=== PATIENT | female | born 1990 | race American Indian/Alaskan Native ===

== ENCOUNTER 2017-10-01 21:21 | Emergency (ER) | payer BC ==
[2017-10-01 22:01] VITALS: BP 121/75
[2017-10-02] MEDS ORDERED: MOTRIN PO ONE (01:39)
[2017-10-02] MEDS ORDERED: NORCO 5/325 PO ONE (01:39)
--- NOTE | 2017-10-02 01:44 | Emergency Department Report ---
HPI - General Chief Complaint: Extremity Problem,Nontraumatic Time Seen by Provider: 10/02/17 00:55 - HPI HPI: The patient's is a 27 yo female presents for evaluation of pain to her thumb. Patient reports left thumb and wrist pain for the past 4 days, 10/10 in severity , sharp in quality, exacerbated with use of the left thumb or movement of the wrist. The patient denies trauma to the thumb or wrist, fever, chills, night sweats, paresthesias, motor deficit. ED Past Medical Hx - Past Medical History Previous Medical History?: No - Surgical History Past Surgical History?: No - Social History Smoking Status: Never Smoker - Medications Home Medications: Home Medications Medication Instructions Recorded Confirmed Last Taken Type Acetaminophen/Codeine [Tylenol #3] 1 tab PO Q6H PRN #10 tab 10/02/17 Unknown Rx Ibuprofen [Motrin] 600 mg PO Q8H PRN #30 tablet 10/02/17 Unknown Rx ED Review of Systems ROS: Stated complaint: LT WRIST PAIN Other details as noted in HPI Constitutional: denies: fever ENT: denies: throat or neck pain Respiratory: denies: cough, shortness of breath Cardiovascular: denies: chest pain Endocrine: denies unexplained weight loss or gain Gastrointestinal: denies: abdominal pain, nausea Genitourinary: denies: dysuria Musculoskeletal: reports left thumb pain denies: leg swelling Skin: denies: rash Neurological: denies: headache Hematological/Lymphatic: denies: easy bleeding or easy bruising Psych: denies sadness or hopelessness Physical Exam - Physical Exam Vital Signs: Vital Signs 10/01/17 10/01/17 21:55 22:38 Temperature 98.4 F 98.4 F Pulse Rate 87 80 Respiratory 19 18 Rate Blood Pressure 121/75 121/75 O2 Sat by Pulse 99 99 Oximetry Physical Exam: General: well-nourished, well-developed, no acute distress Head: Normocephalic, atraumatic Eyes: normal sclera ENT: Mucous membranes are pink and moist Neck: trachea midline, neck supple, No neck stiffness Respiratory: Breath sounds equal bilaterally, no wheezing, rales, or rhonchi Cardio: S1 and S2 present, no murmurs, rubs, gallops, capillary refill is brisk Musc: Tenderness to palpation present to the left radial styloid, positive Janeth test, no sensation or motor deficit in the digits of the left hand including the thumb, no swelling of the digits, no redness, warmth, fluctuance, or crepitus of the left wrist or hand, left wrist extensor function intact Skin: No rash Neuro: no facial drooping, normal speech Psych: Normal affect ED Course Vital Signs 10/01/17 10/01/17 21:55 22:38 Temperature 98.4 F 98.4 F Pulse Rate 87 80 Respiratory 19 18 Rate Blood Pressure 121/75 121/75 O2 Sat by Pulse 99 99 Oximetry ED Medical Decision Making - Medical Decision Making The patient was seen and examined by myself. On initial evaluation, the patient was found to be in no distress, and with physical exam findings consistent with de Quervain's tendinitis of the left extensor pollicis longus. The patient is given Motrin for inflammation and a tablet of Tylenol 3 for pain. The patient was offered an x-ray of the wrist and thumb but she declined. The patient was reevaluated and reported that their symptoms were markedly improved. There are no signs of flexor tenosynovitis, cellulitis, abscess, septic arthritis, or compartment syndrome. The patient is stable for discharge with outpatient follow-up as she has no sensation or motor deficits in the left hand or digits. The patient is given follow-up and return instructions. The patient expressed understanding and agreed with the plan. The patient is discharged in stable condition. Critical care attestation.: If time is entered above; I have spent that time in minutes in the direct care of this critically ill patient, excluding procedure time. ED Disposition Clinical Impression: Left hand tendonitis, Radial styloid tenosynovitis [de quervain] Disposition: - TO HOME OR SELFCARE Is pt being admited?: No Does the pt Need Aspirin: No Condition: Stable Instructions: Tendinitis (ED), Arthralgia (ED), De Quervain Disease (ED) Referrals: ERIK SHETTY MD [Staff Physician] - 3-5 Days Forms: Work/School Release Form(ED) Time of Disposition: 01:30
== END 2017-10-02 02:15 | disposition home or self-care (01) ==
LOC: ED 21:21
DX: M65.4 Radial styloid tenosynovitis [de Quervain] (principal); M77.9 Enthesopathy, unspecified; Z88.1 Allergy status to other antibiotic agents
CPT/HCPCS: 99282